=== PATIENT | female | born 1985 ===

== ENCOUNTER 2024-07-09 02:08 | Outpatient (CLI) | payer MEDICAID, SELFPAY ==
--- NOTE | 2024-07-09 | DI.US_ITS ---
Exam(s) US OB 2-3 TRIMESTER TWINS EXAM: US OB 2-3 TRIMESTER TWINS CLINICAL HISTORY: ANATOMIC SCREEN, TWIN , O30.04, FAX [phone]. TECHNIQUE: Transabdominal obstetrical ultrasound performed. COMPARISON: No exams were available for comparison FINDINGS: Number of fetuses: two. Dichorionic diamniotic. FINDINGS: Fetus A. position:Variable heart rate: 145 bpm. Placental grade: 0 Placental location: Anterior no evidence of previa. BIOMETRIC DATA: BPD: 21+1 weeks HC: 21 weeks AC: 21+1 weeks FL: 21+1 weeks Ultrasound gestational age: 21+1 weeks Estimated weight: 402 Grams. This corresponds to 69th percentile. Estimated date of delivery (current ultrasound): 18 November 2024 Estimated date of delivery (previous ultrasound): 21 November 2024 Amniotic fluid : Amount of fluid is within normal limits. ANATOMICAL SURVEY: Four-chambered heart: Unremarkable. RVOT: Unremarkable. LVOT: Unremarkable. Three-vessel cord: Unremarkable. Cord insertion: Unremarkable. Umbilical artery velocity: Unremarkable. Bilateral kidneys: Suboptimally visualized urinary bladder: Unremarkable. Left-sided stomach: Not well visualized. spine: Unremarkable. ventricles: Unremarkable. Two arms and two legs: Unremarkable. nose/lips: Unremarkable. FINDINGS: Fetus B. position:Vertex. heart rate: 144 bpm. Placental grade: 0 Placental location: Posterior. No evidence of previa. BIOMETRIC DATA: BPD: 20+ 6 weeks HC: 20+ 6 weeks AC: 21 weeks FL: 21 weeks Ultrasound gestational age: 21 weeks Estimated weight: 388 Grams. This corresponds to 58 percentile. Estimated date of delivery (current ultrasound): 19 November 2024 Estimated date of delivery (previous ultrasound): 2015 Amniotic fluid : Amount of fluid is within normal limits. ANATOMICAL SURVEY: Four-chambered heart: Unremarkable. RVOT: Unremarkable. LVOT: Unremarkable. Three-vessel cord: Unremarkable. Cord insertion: Unremarkable. Umbilical artery velocity: Unremarkable. Bilateral kidneys: Unremarkable. urinary bladder: Unremarkable. Left-sided stomach: Unremarkable. spine: Unremarkable. ventricles: Unremarkable. Two arms and two legs: Unremarkable. nose/lips: Unremarkable. Nuchal fold: mm IMPRESSION: 1. Twin live intrauterine gestation as above. 2. Normal anatomic survey of twin B. 3. The kidneys and stomach were suboptimally visualized for fetus A. the patient is scheduled t o return for additional imaging 16 July 2024. Additional imaging needed DATA REPOSITORY:
== END 2024-07-09 02:28 ==
LOC: DI 02:08
PROVIDERS: Visit Provider Midwife
DX: O30.042 Twin pregnancy, dichorionic/diamniotic, second trimester (principal); Z3A.21 21 weeks gestation of pregnancy
CPT/HCPCS: 76805; 76810

== ENCOUNTER 2024-07-16 02:27 | Outpatient (CLI) | payer MEDICAID, SELFPAY ==
--- NOTE | 2024-07-16 | DI.US_ITS ---
Exam(s) US OB F/U FACIAL/LVOT/RVOT EXAM: US OB F/U FACIAL/LVOT/RVOT CLINICAL HISTORY: F/u survey, stomach baby A. TECHNIQUE: Transabdominal obstetrical ultrasound performed. COMPARISON: US US OB 2-3 TRIMESTER TWINS from 07/09/2024 FINDINGS: Number of fetuses: There are 2 fetuses. This limited examination evaluates only baby A. Baby A as de noted by the anterior placenta. Placental location: Anterior. Limited anatomic evaluation: The stomach and kidneys of Baby A are visualized and are unremarka ble. IMPRESSION: 1. This is a limited examination of Baby A. 2. Baby A's stomach and kidneys are visualized and are unremarkable. DATA REPOSITORY:
== END 2024-07-16 02:47 ==
PROVIDERS: Visit Provider Midwife
DX: O30.001 Twin pregnancy, unspecified number of placenta and unspecified number of amniotic sacs, first trimester (principal); Z3A.11 11 weeks gestation of pregnancy
CPT/HCPCS: 76815